=== PATIENT | male | born 1955 | race Caucasian/White ===

== ENCOUNTER → 2016-08-03 | Outpatient (CLI) | payer OTHER ==
[~2016-08-03] MED LIST: ATOR10TA66 PO; CLOP75TA28 PO; GEMF600T3 PO; MULT-1030 PO; OMEG-109 PO
--- NOTE | 2016-08-03 11:19 | STRESS TEST ---
PROCEDURE PHYSICIAN: MEAGHAN MELISSA EXERCISE STRESS ECHOCARDIOGRAM REPORT DATE OF PROCEDURE: 08/03/2016 REFERRING PHYSICIAN: Dr. Farr INDICATION: Chest pain. Baseline heart rate is 67, baseline blood pressure: 136/70. Baseline EKG: Sinus rhythm with no ischemic changes. SUMMARY: The patient started exercising with a baseline heart rate, blood pressure and EKG mentioned above. He was able to exercise for a total 7 minutes on standard Taye protocol. With peak exercise level, blood pressure was 142, which is pressure 90% of maximum expected heart rate. With peak exercise level, EKG was showing minimal nondiagnostic changes. During recovery, heart rate and blood pressure returned to baseline. EKG returned to baseline. Echocardiographic images were acquired and reviewed in the parasternal long axis parasternal short axis, apical 4 chamber and apical 2 chamber views. Review of the images showed normal left ventricular size. Mild hypokinesia noted after stress on the lateral wall. CONCLUSION: 1. Good exercise tolerance a total 7 minutes on standard Taye protocol. Total of 10.1 METs achieving 90% of maximum expected heart rate. 2. Appropriate heart rate and blood pressure response to exercise. Returned to baseline during recovery. 3. Minimal nondiagnostic EKG changes with exercise. Returned to baseline during recovery. 4. Normal echocardiographic images with stress-induced mild lateral wall hypokinesia suggestive of ischemia. Job ID: [id number] Dictated Date: 08/03/2016 10:51:12 Watch Band Assembler Date: 08/03/2016 11:15:13 / parth
--- NOTE | 2016-08-04 07:41 | ECHOCARDIOGRAPHY REPORT ---
PROCEDURE PHYSICIAN: MEAGHAN MELISSA DATE OF PROCEDURE: 08/03/2016 TWO DIMENSIONAL ECHOCARDIOGRAM REPORT PRIMARY PHYSICIAN: OTHER PHYSICIAN: REFERRING PHYSICIAN: Dr. Shanita Farr ORDERING PHYSICIAN: INDICATION FOR THE PROCEDURE: Chest pain. MEASUREMENTS DERIVED VALUES LV DIAMETER (LAX) NORMALS NORMALS Diastolic 4.5 (3.6-5.2) Eject. Fract. 60% (60%+/-6%) Systolic (2.3-3.9) Diastolic Vol. % Shortening (0.22-0.42) Systolic Vol. Aortic Root IVS THICKNESS Diastolic 1.1 (0.6-1.1) LVPW THICKNESS Diastolic 1.1 (0.6-1.1) LA DIAMETER Systolic 3 (2.1-3.7) FINDINGS: 1. Technical quality is good. 2. The left ventricle is normal in size with normal contractility. Systolic function appeared to be normal. Estimated ejection fraction 60%. Diastolic dysfunction is suggested by Doppler. 3. The left atrium is normal in size. No clot or thrombus were seen within the left atrium. 4. The right atrium and right ventricle are normal in size. No clot or thrombus were seen within the right side. 5. Mitral valve is normal in morphology with mild mitral regurgitation noted by color Doppler flow. No mitral valve prolapse. No mitral valve stenosis. 6. Aortic valve is trileaflet with normal opening and closing pattern. No significant aortic stenosis or regurgitation was seen. 7. Tricuspid valve is normal in morphology with mild tricuspid regurgitation noted by color Doppler flow. Doppler across tricuspid valve estimated pulmonary artery pressure of 23+ right atrial pressure. 8. Pulmonic valve is functioning normally. 9. No pericardial effusion. IN CONCLUSION: 1. Normal left ventricular size and systolic function. Estimated ejection fraction 60%. Diastolic dysfunction is suggested by Doppler. 2. Mild mitral and tricuspid regurgitation. 3. Estimated pulmonary artery pressure of 30 mmHg. Job ID: [id number] Dictated Date: 08/03/2016 19:25:12 Server Security Administrator Date: 08/04/2016 07:38:44 / tbk
== END ==
LOC: CARD 08:02
PROVIDERS: ATTEND Internal Medicine Cardiovascular Disease
DX: I10 Essential (primary) hypertension (principal); R07.9 Chest pain, unspecified; E78.1 Pure hyperglyceridemia; N20.0 Calculus of kidney; E66.9 Obesity, unspecified
CPT/HCPCS: 93306

== ENCOUNTER 2016-08-12 10:34 | Day surgery (SDC) | payer OTHER ==
[2016-08-12] VITALS (7 sets, daily range): BP systolic 120–139; BP diastolic 72–106
[~2016-08-12] VITALS: Ht 182.9 cm; Wt 106.6 kg
[2016-08-12] MEDS ORDERED: LIDOCAINE 1% INJ 20 ML (XYLOCAINE) VIAL ONE (10:51)
[2016-08-12] MEDS ORDERED: HEParin (CATH LAB) 2,000 ML IV ONE (10:51)
[2016-08-12] MEDS ORDERED: NS IV 1000 ML 1,000 ML ONE (10:51)
[2016-08-12 11:12] LABS: MEAN PLATELET VOLUME 9.2 FL (7.4-10.4); RED BLOOD COUNT 5.53 10^6/uL (4.35-5.85); RED CELL DISTRIBUTION WIDTH 12.8 % (10.0-14.5); WHITE BLOOD COUNT 7.8 10^3/uL (4.3-11.0)
[2016-08-12 11:13] LABS: BILIRUBIN,URINE NEGATIVE (NEGATIVE); KETONES,URINE NEGATIVE (NEGATIVE); LEUKOCYTE ESTERASE ,URINE NEGATIVE (NEGATIVE); NITRITE,URINE NEGATIVE (NEGATIVE); PH,URINE 5 (5-9); PROTEIN,URINE NEGATIVE (NEGATIVE); UROBILINOGEN,URINE NORMAL (NORMAL)
[2016-08-12] MEDS ORDERED: NS IV 1000 ML 1,000 ML IV SCH (11:15)
--- NOTE | 2016-08-12 11:17 | Diagnostic Imaging Report ---
Indication: Chest pain Portable chest 11:06 AM Heart size and pulmonary vascular normal. Lungs are clear. There are no effusions or pneumothoraces. Impression: Negative chest Dictated by: Dictated on workstation # [id number]
[2016-08-12 11:20] LABS: SQUAMOUS EPITHELIAL CELL,UR RARE /HPF
[2016-08-12 11:22] LABS: INR 1.2 (0.8-1.4); PROTHROMBIN TIME PATIENT 14.4 SEC (12.2-14.7)
[2016-08-12 11:31] LABS: ALANINE AMINOTRANSFERASE 32 U/L (0-55); ALBUMIN 4.9 G/DL (3.2-4.5); ANION GAP 9 MMOL/L (5-14); ASPARTATE AMINO TRANSFERASE 25 U/L (5-34); BILIRUBIN,TOTAL 0.8 MG/DL (0.1-1.0); BLOOD UREA NITROGEN 18 MG/DL (7-18); BUN/CREATININE RATIO 17; CALCIUM 9.8 MG/DL (8.5-10.1); CARBON DIOXIDE 24 MMOL/L (21-32); CHLORIDE 106 MMOL/L (98-107); CHOLESTEROL 201 MG/DL (< 200); CREATININE SERUM 1.05 MG/DL (0.60-1.30); DIRECT LDL 151 MG/DL (1-129); GFR ESTIMATED > 60; GLUCOSE 98 MG/DL (70-105); POTASSIUM 4.2 MMOL/L (3.6-5.0); SODIUM 139 MMOL/L (135-145); TOTAL PROTEIN 7.7 G/DL (6.4-8.2); TRIGLYCERIDES 123 MG/DL (<150); VLDL CHOLESTEROL 25 MG/DL (5-40)
[2016-08-12] MEDS ORDERED: OMEG-109 PO (11:32)
[2016-08-12] MEDS ORDERED: MULT-1030 PO (11:32)
[2016-08-12] MEDS ORDERED: GEMF600T3 PO (11:32)
[2016-08-12] MEDS ORDERED: fentaNYL INJECTION 100 MCG/2 ML AMP ONE (14:48)
[2016-08-12] MEDS ORDERED: MIDAZOLAM 5 MG/5 ML (VERSED) VIAL ONE (14:48)
--- NOTE | 2016-08-12 15:00 | Cardiac Procedure Note-CS/ASA ---
Pre-Procedure Note Pre-Op Procedure Note H&P Reviewed The H&P was reviewed, patient examined and no changes noted. Date H&P Reviewed: Aug 12, 2016 Time H&P Reviewed: 14:59 Conscious Sedation Pre-Proced Time Reviewed: 14:59 ASA Class: 3 Airway Mallampati Classification: ([place] appropriate class) I. II. III, IV Lungs Heart ASA score ASA 1: a normal healthy patient ASA 2: a patient with a mild systemic disease (mid diabetes, controlled hypertension, obesity X ASA 3: a patient with a severe systemic disease that limits activity (angina , COPD, prior Myocardial infarction) ASA 4: a patient with an incapacitating disease that is a constant threat to life (CHF, renal failure) ASA 5: a moribund patient not expected to survive 24 hrs. (ruptured aneurysm) ASA 6: a declared brain patient whose organs are being harvested. For emergent operations, add the letter E after the classification Grade 3 Sedation Plan: Analgesia, Amnesia, Plan communicated to team members, Discussed options with patient/fam, Discussed risks with patient/fam Note The patient is an appropriate candidate to undergo the planned procedure, sedation, and anesthesia. The patient immediately re-assessed prior to indication. MEAGHAN MELISSA MD Aug 12, 2016 15:00
[2016-08-12] MEDS ORDERED: NITROGLYCERIN DRIP 25 MG/D5W 0 ML IV ONE (15:14)
[2016-08-12] MEDS ORDERED: HEParin 1000 UNIT/ML (10ML VIAL) FOR BOLUS ONE (15:14)
[2016-08-12] MEDS ORDERED: EPTIFIBATIDE BOLUS 20 ML IV ONE (15:16)
[2016-08-12] MEDS: NS IV 1000 ML 1,000 ML IV SCH ×2 (15:52→23:15)
[2016-08-12] MEDS ORDERED: CLOPIDOGREL 300 MG (PLAVIX) TABLET PO NR (16:00)
[2016-08-12] MEDS ORDERED: PATIENT MAY USE OWN MEDS, ALL PO SCH (16:00)
[2016-08-12] MEDS: FISH OIL 1200 MG CAPSULE PO SCH (20:29)
[2016-08-12] MEDS: GEMFIBROZIL 600 MG (LOPID) TAB PO SCH (20:30)
[2016-08-12] MEDS ORDERED: NON-FORMULARY MEDICATION 1 EA EA (Omega-3 Fatty Acids/Fish Oil (Fish Oil 1,200 mg Softgel) PO SCH (21:00)
[2016-08-12] MEDS ORDERED: OMEGA 3 (FISH OIL) 1000 MG CAP PO SCH (21:00)
[2016-08-12] MEDS ORDERED: GEMFIBROZIL 600 MG (LOPID) TAB PO SCH (21:00)
[2016-08-12] MEDS ORDERED: ATORVASTATIN 10 MG (LIPITOR) TABLET PO SCH (21:00)
[2016-08-13 04:00] VITALS: BP 133/81
[2016-08-13 04:24] LABS: MEAN PLATELET VOLUME 9.7 FL (7.4-10.4); RED BLOOD COUNT 5.15 10^6/uL (4.35-5.85); RED CELL DISTRIBUTION WIDTH 12.7 % (10.0-14.5); WHITE BLOOD COUNT 8.6 10^3/uL (4.3-11.0)
[2016-08-13 04:37] LABS: ANION GAP 11 MMOL/L (5-14); BLOOD UREA NITROGEN 17 MG/DL (7-18); BUN/CREATININE RATIO 20; CALCIUM 8.8 MG/DL (8.5-10.1); CARBON DIOXIDE 19 MMOL/L (21-32); CHLORIDE 107 MMOL/L (98-107); CREATININE SERUM 0.86 MG/DL (0.60-1.30); GFR ESTIMATED > 60; GLUCOSE 103 MG/DL (70-105); POTASSIUM 4.3 MMOL/L (3.6-5.0); SODIUM 137 MMOL/L (135-145)
[2016-08-13] MEDS: GEMFIBROZIL 600 MG (LOPID) TAB PO SCH (06:13)
[2016-08-13] MEDS: FISH OIL 1200 MG CAPSULE PO SCH (06:14)
[2016-08-13] MEDS ORDERED: MULTIVIT W/MINERALS TAB (THERAGRAN M) PO SCH ×2 (07:00)
[2016-08-13] MEDS ORDERED: CLOP75TA28 PO (07:50)
[2016-08-13] MEDS ORDERED: ATOR10TA66 PO (07:50)
--- NOTE | 2016-08-13 07:55 | Discharge Inst-Post CATH ---
Discharge Inst-CATH Post Cardiac Cath D/C Inst Follow Up/Plan Appointment with Dr Bear's office in 2-4 weeks CARDIAC CATH DISCHARGE INSTRUCTIONS *Hold Metformin for 48 hours post heart cath. ACTIVITY * Go Home directly and rest. * Limit activity of the leg (or wrist if it was used) for 7 days including aerobics, swimming, jogging, bicycling, etc. * Restrict stair-climbing for 7 days if possible, if not, climb up with your non -cath leg, then bring together on the same step. * Avoid lifting, pushing, pulling or excessive movement of the affected extremity for 7 days. * Customary sexual activity may be resumed after 2 days-use caution not to use a position that strains or causes pain to the affected extremity. * No driving for 24 hours. * NO SMOKING. * Avoid straining for bowel movements for 7 days. * Gentle walking on level ground is allowed. * Returning to work will depend on the type of procedure and the results. Your doctor will discuss this with you. CALL YOUR DOCTOR FOR ANY OF THE FOLLOWING: *If bleeding from the puncture site occurs- Apply gentle pressure to site with clean cloth and call your doctor or EMS. * If a knot or lump forms under the skin, increases in size, or causes pain. * If bruising appears to be worsening or moving further down your leg instead of disappearing. * Temperature above 101 F. CARE OF YOUR GROIN INCISION; * Bruising or purple discoloration of the skin near the puncture site is common. * You may shower only, no bathtub bathing for 5 days. Be careful to avoid slipping as your leg may feel stiff. * If a closure device was used on your femoral artery, please see the attached guide regarding care of the device and your leg. * REMOVE the dressing from your groin the next day after your procedure in the shower. CARE OF YOUR WRIST INCISION; * Bruising or purple discoloration of the skin near the puncture site is common. * You may shower. * DO NOT submerge wrist. * Remove dressing in 24 hours. MEAGHAN BEAR MD Aug 13, 2016 07:55
--- NOTE | 2016-08-13 08:01 | Cardiology Progress Note ---
Subjective Subjective/Events-last exam Patient is in bed, feeling better, no new complaint, no chest pain or shortness of breath, no palpitations Review of Systems General: No Chills, No Night Sweats, No Fatigue, No Malaise, No Appetite, No Other HEENT: No Head Aches, No Visual Changes, No Eye Pain, No Ear Pain, No Dysphasia , No Sinus Congestion, No Post Nasal Drip, No Sore Throat, No Other Pulmonary: No Dyspnea, No Cough, No Pleuritic Chest Pain, No Other Cardiovascular: No: Chest Pain, Edema, Lt Headedness, Orthopnea, Other, Palpitations, Paroxysmal Noc. Dyspnea Objective-Cardiology Exam Last Set of Vital Signs Vital Signs 08/13/16 04:00 Temp 97.5 Pulse 62 Resp 18 B/P 133/81 Pulse Ox 98 O2 Delivery Room Air Capillary Refill : Less Than 3 Seconds I&O Intake and Output 08/13/16 00:00 Intake Total 150 ml Output Total 0 ml Balance 150 ml Intake Oral 150 ml Output Urine Total 0 ml General: Alert, Oriented X3, Cooperative HEENT: Atraumatic, PERRLA Neck: Supple, No JVD, No Thyromegaly Lungs: Clear to Auscultation, Normal Air Movement Heart: Regular Rate, Normal S1, Normal S2, No Murmurs Abdomen: Normal Bowel Sounds, Soft, No Tenderness, No Hepatosplenomegaly, No Masses Extremities: No Clubbing, No Cyanosis, No Edema, Normal Pulses, No Tenderness/ Swelling Skin: No Rashes, No Breakdown, No Significant Lesion Neuro: Normal Gait, Normal Speech, Strength at 5/5 X4 Ext, Normal Tone, Sensation Intact Psych/Mental Status: Mental Status NL, Mood NL Results Lab Laboratory Tests 08/12/16 11:06 08/13/16 03:24 A/P-Cardiology Admission Diagnosis Chest pain Coronary artery disease Hypertension Hyperlipidemia Assessment/Plan Chest pain, better Coronary artery disease Hypertension Hyperlipidemia Planning for high risk intervention, continue to [facility] MEAGHAN MELISSA MD Aug 13, 2016 08:01
[2016-08-13 08:02] VITALS: BP 124/82
[2016-08-13 08:50] VITALS: BP 124/82
[2016-08-13] MEDS ORDERED: CLOPIDOGREL 75 MG (PLAVIX) TABLET PO SCH ×2 (09:00)
[2016-08-13] MEDS ORDERED: ISOSORBIDE MONONITRATE 30 MG (IMDUR) TAB PO SCH (09:00)
--- NOTE | 2016-08-13 13:37 | DISCHARGE SUMMARY ---
PROCEDURE PHYSICIAN: MEAGHAN MELISSA DATE OF PROCEDURE: 08/12/2016 REFERRING PHYSICIAN: Dr. Shanita Farr BRIEF HISTORY: Mr. Whitney is a 61-year-old gentleman with history of hypertension, hyperlipidemia. He has been having chest pain. He had an abnormal stress test with lateral wall ischemia. PROCEDURE NOTE: After explaining the procedure to the patient, all pros and cons were explained. All questions were answered. The patient signed a consent, then he was placed on the cardiac catheterization laboratory. The right groin was prepped in a sterile fashion. Local anesthesia applied to right groin. 6-Yakut sheath was placed in the right femoral artery. Combination of right and left Anthony catheter were used to access the right and left coronary system. Multiple views were obtained. Pigtail catheter advanced to the left ventricular cavity. Left ventriculogram was done. Pullback LV to aorta was done. The aortic arch angiogram was done. Then the patient was noted to have total occlusion of the circumflex artery. I decided to proceed with percutaneous intervention. The patient was given heparin and Integrilin boluses. I used FL guide advanced to the left coronary system. Tried to cross the lesion with BMW wire without success. I parked the BMW wire in the obtuse marginal branch. Then I used Whisper extra support wire without success. Exchanged it into ChoICE floppy without success. I advanced 2.0 x 8 mm Emerge balloon to the proximal circumflex artery and inflated it for additional support and tried to cross the total occlusion without success. At that point the wires were removed and the balloon was removed. I decided to proceed with conservative management. Sheath was removed. Mynx device deployed. Hemostasis achieved. FINDINGS: HEMODYNAMICS: LV pressure 122/17, end-diastolic pressure of 17, aortic pressure 117/64, mean of 86 no significant gradient across the aortic valve. ANATOMY: 1. Left main coronary artery is bifurcating to left anterior descending and left circumflex artery with no obstructive disease. 2. Left anterior descending artery bifurcates proximally into 2 diagonal arteries with abrupt bifurcation. There is no obstructive disease with mild to moderate disease. 3. Left circumflex artery is totally occluded at the proximal portion. Attempt for crossing the total occlusion has failed as described above. 4. Right coronary artery is a large dominant artery with 40 to 50% stenosis proximally, during collateral filling the circumflex system. 5. Left ventriculogram was done in the right anterior oblique position. Left ventricle is normal in size. Systolic function appeared to be normal. Estimated ejection fraction 60%. 6. The aortic arch angiogram: Aortic arch angiogram was done in the left anterior oblique position. There is mild hypertensive changes. Origin of the great neck vessels were normal. CONCLUSION: 1. Total occlusion of the circumflex artery with attempt to cross the lesion without success, getting collateral from the right system. Consideration for high-risk intervention for GOLF STUD RIVETER at a tertiary care center if patient continues to be symptomatic. 2. Large dominant right coronary system with 50% stenosis. 3. Mild disease at the LAD. 4. Normal left ventricular size and systolic function. Estimated ejection fraction 60%. 5. Normal aortic arch and great neck vessels. DISCUSSION AND RECOMMENDATION: The patient will be treated medically at this time. I will continue with Gemfibrozil, add statins so this medication. Add Plavix. The patient is allergic to aspirin. Add Isosorbide and evaluate his tolerance. 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 FINAL DIAGNOSES: 1. Unstable angina. 2. Coronary artery disease. 3. Hypertension. 4. Hyperlipidemia Job ID: [id number] Dictated Date: 08/12/2016 15:56:54 Winding Lathe Operator Date: 08/13/2016 13:34:47/parth
== END 2016-08-13 08:50 | disposition home or self-care (01) ==
LOC: CATH 10:34 → ICU 17:07 → CATH 08-13 08:50
PROVIDERS: ATTEND Internal Medicine Cardiovascular Disease
DX: I25.110 Atherosclerotic heart disease of native coronary artery with unstable angina pectoris (principal); I25.82 Chronic total occlusion of coronary artery; I10 Essential (primary) hypertension; E78.1 Pure hyperglyceridemia; E66.9 Obesity, unspecified; Z68.31 Body mass index [BMI] 31.0-31.9, adult; Z87.891 Personal history of nicotine dependence; Z79.899 Other long term (current) drug therapy
CPT/HCPCS: 36221; 36415; 71010; 80048; 80053; 80061; 81000; 85027; 85347; 85610; 85730; 87081; 93005; 93458

== ENCOUNTER 2016-12-16 09:06 | Outpatient (RCR) | payer OTHER ==
--- OUTSIDE RECORDS SUMMARY | 2016-09-28 08:38 | XMS REPORT | Continuity of Care Document ---
Author Author [facility] Organization [facility] Address Unknown Phone Unavailable Care Team Providers Care Senior Materials Scientist Name Role Phone Leatha Farr PCP [phone] Source Comments Some departments are not documenting in the electronic medical record. If you do not see the information that you expected, contact Release of Information in the Health Information Management department at [phone] for further assistance in locating additional records.[facility] Active Allergies and Adverse Reactions Allergen Noted Date Severity Reactions Comments Aspirin 08/19/2016 Medium HIVES Pt states he breaks out in hives "head to toe". Aspirin last taken 30 years ago, per pt. Ibuprofen 08/19/2016 Low UNKNOWN Current Medications Prescription Sig. Disp. Refills Start End Date Status Date atorvastatin (LIPITOR) 10 Take 10 mg by mouth Active mg tablet daily. clopiDOGrel (PLAVIX) 75 Take 75 mg by mouth Active mg tablet daily. gemfibrozil (LOPID) 600 Take 600 mg by mouth Active mg tablet twice daily. MULTIVITAMIN PO Take 1 Tab by mouth Active daily. DOCOSAHEXANOIC ACID/EPA Take 1,200 mg by mouth Active (FISH OIL PO) twice daily. aspirin 81 mg chewable Chew 1 Tab by mouth 90 Tab 3 08/26/19 Active tablet daily. Take with food. 17 Active Problems Problem Noted Date Coronary artery disease involving [place] coronary artery of [place] heart Hyperlipidemia 08/19/2016 Coronary artery disease involving [place] heart 08/19/2016 Overview: 08/12/16 heart cath ([place], [place]) : [employer] of the circumflex artery with attempt to cross the lesion without success. Large dominant RCA with 50% stenosis. Mild disease at the LAD. Normal EF, 60%. Normal aortic arch & great neck vessels. 08/25/16 - PCI of [employer]IAN of circumflex with Xience drug eluting stent. Most Recent Encounters Date Type Specialty Providers Description 08/25/2016 Hospital Cardiology Robin Thomas MD Coronary artery disease - Encounter involving [place] heart 08/26/2016 08/25/2016 Office Visit Cardiology Robin Thomas MD New Patient - [employer]IAN-circumflex; same day cath 08/25/2016 Surgery Cardiology Robin Thomas MD Chronic Total Occlusion Circumflex 08/24/2016 Pre-Admit Cardiology Natasha Haas APRN-C Orders Only 08/20/2016 Documentation Cardiology Justice Arteaga RN Precertification - Approval for LVCORS through [facility] 08/19/2016 Pre-Procedure Cardiology Janet Glass RN Cath Pre- Procedure Instructions Instructions - LVCORS +/- ([employer]IAN - circumflex w/ ASA desensitization) 08/19/2016 Patient Profile Cardiology Janet Glass RN Erroneous encounter-disregard 08/19/2016 Patient Profile Cardiology Janet Glass RN New Patient - CAD - [employer]IAN of the circumflex, referred by Nikunj Bear MD Social History Tobacco Use Types Packs/Day Years Used Date Never Assessed Last Filed Vital Signs Vital Sign Reading Time Taken Blood Pressure 124/74 08/26/2016 7:50 AM BILINGUAL CASE MANAGER Pulse 63 08/26/2016 7:50 AM BILINGUAL CASE MANAGER Temperature 36.4 C (97.5 F) 08/26/2016 7:50 AM BILINGUAL CASE MANAGER Respiratory Rate - - Height 1.829 m (6') 08/25/2016 8:37 AM BILINGUAL CASE MANAGER Weight 108.7 kg (239 lb 10.2 oz) 08/25/2016 8:37 AM BILINGUAL CASE MANAGER Body Mass Index 32.49 08/25/2016 8:37 AM BILINGUAL CASE MANAGER Oxygen Saturation 97% 08/26/2016 7:50 AM BILINGUAL CASE MANAGER Plan of Care Health Maintenance Due Date Last Done Comments Hepatitis C Screening 1955 Physical (Comprehensive) 1960 Exam Pertussis Vaccine 1964 Tetanus Vaccine 1970 Colorectal Cancer 2003 Screening Shingles Vaccine 2013 Influenza Vaccine 03/12/2016 Procedures from Last 3 Months Procedure Name Priority Date/Time Associated Diagnosis Comments ECG UNCONFIRMED-SCAN 08/27/2016 Results for this 11:40 AM BILINGUAL CASE MANAGER procedure are in the results section. ECG-SCAN 08/27/2016 Results for this 11:36 AM BILINGUAL CASE MANAGER procedure are in the results section. TELEMETRY STRIPS-SCAN 08/27/2016 Results for this 11:32 AM BILINGUAL CASE MANAGER procedure are in the results section. PROCEDURE RECORD-SCAN 08/27/2016 Results for this 11:21 AM BILINGUAL CASE MANAGER procedure are in the results section. ECG-SCAN 08/27/2016 Results for this 9:50 AM BILINGUAL CASE MANAGER procedure are in the results section. ECG-SCAN 08/27/2016 Results for this 9:50 AM BILINGUAL CASE MANAGER procedure are in the results section. Results from Last 3 Months ECG UNCONFIRMED-SCAN (08/27/2016 11:40 AM) Narrative Ordered by an unspecified provider. ECG-SCAN (08/27/2016 11:36 AM) Narrative Ordered by an unspecified provider. TELEMETRY STRIPS-SCAN (08/27/2016 11:32 AM) Narrative Ordered by an unspecified provider. PROCEDURE RECORD-SCAN (08/27/2016 11:21 AM) Narrative Ordered by an unspecified provider. ECG-SCAN (08/27/2016 9:50 AM) Narrative Ordered by an unspecified provider. ECG-SCAN (08/27/2016 9:50 AM) Narrative Ordered by an unspecified provider. CARDIAC CATH REPORT (08/26/2016 6:44 AM) Procedure Note WedAug 25, 2016 6:18 PM BILINGUAL CASE MANAGER [facility] CARDIAC CATHETERIZATION REPORT Page 2 ARMANI Reyes : 1955 #: [id number] KU MR #/Billing ID #: [id number] / [id number] DATE: 08/25/2016 MAIL CLERK: Robin Thomas MD DICTATING PROVIDER: Vito Crocker MD REFERRING PHYSICIAN: Shanita Farr MD TIME: 5:41 p.m. FELLOW: Vito Crocker MD PROCEDURES PERFORMED: 1. Left heart catheterization. 2. Selective angiography. 3. Successful percutaneous coronary intervention of the mid left circumflex [employer]IAN with a 2.25 x 18 Xience stent and post dilated post dilated with a 2.25 x 8 NC balloon with good angiographic results and residual stenosis of 0%. INDICATION FOR PROCEDURE: Mr. Armani Whitney is referred by Dr. Bear for revascularization of a high risk proximal circumflex lesion. The patient did have cardiac catheterization for chest pressure and symptoms. At that time, he was found to have an occlusion, [employer]IAN of the left circumflex mid portion. Attempt was made to open it up, but they were unsuccessful. As a result of which, he is referred here for further attempt at the [employer]IAN of the mid left circumflex. WRITTEN INFORMED CONSENT: Mr. Whitney was consented in the holding area after a thorough explanation of the risks and benefits of the procedure including alternatives of the procedure. Patient agreed to proceed and gave the written informed consent. DETAILS OF PROCEDURE: Mr. Armani Whitney was brought to the cardiac catheterization laboratory in a fasting and hemodynamically nonsedated, stable state. The patient received a total of 50 mcg IV fentanyl and 3 mg IV Versed to maintain and achieved moderate sedation during the entire procedure. Hemodynamic, neurologic, and respiratory parameters including heart rate, blood pressure, EKG, and level of consciousness, respiratory rate, and pulse oximetry were monitored by myself Dr. Robin Thomas, and by the experimental machining lab manager staff. After sterile prep and drape, 20 mL of 1% lidocaine was injected in the right groin subcutaneously and a 5-Iraqi sheath was inserted into the right femoral artery using Seldinger technique and micropuncture kit. Once the sheath was in place, a 5-Iraqi JL4 was advanced over the guidewire into the aortic root and engaged to the left coronary ostia. Left coronary artery images were done in multiple views. JL4 removed. Then, a 5-Iraqi JR4 was advanced over the guidewire into the aortic root and engaged to the right coronary ostia. Right coronary artery images were done in multiple views. Then, a 5-Iraqi pigtail catheter was advanced over the guidewire into the aortic root and further advanced into the LV and LV pressure measurements done. Pigtail catheter was pulled back from LV into the aorta and LV AO pullback gradient recorded. This leal the end of the diagnostic angiography and left heart catheterization. After this, we decided that we would pursue the [employer]IAN of the mid left circumflex. DETAILS OF THE PERCUTANEOUS CORONARY INTERVENTION OF THE [employer]ARIAN OF THE MID LEFT CIRCUMFLEX: A 6-Iraqi sheath was inserted into the right femoral artery using the Seldinger technique and over the guidewire and 5-Iraqi sheath was removed. Once the 6-Iraqi sheath was in place, heparin was given IV bolus on an as- needed basis and ACT was checked intermittently and was kept between 250 and 350 during the entire PCI procedure. A 6-Iraqi AL 0.75 guide was initially tried to engage to the left coronary ostia, but did not help. Then, we tried a 6-Iraqi AL1, then we tied a 6-Iraqi EBU 3.75 and a 4.0 guidewire, but they did not help. At this point in time we used an SL 4.0, which gave us medium support and engaged the left coronary ostia. After this, we advanced a 0.014 long Fielder XT wire along with a Corsair 135 cm long catheter. The 0.014 Fielder XT went through the mid left circumflex 100% [employer]IAN occlusion all the way down into the distal left circumflex. Over these, we were able to advance our Corsair catheter all the way down into the distal left circumflex. Once it was in the distal left circumflex, we took out the 0.014 Fielder XT wire, and then we introduced 0.014 long Luge wire through the Corsair catheter. At this point in time, removed the Corsair catheter, leaving the long Luge wire in the distal left circumflex. The Corsair catheter was removed and then we advanced a 2.0 x 15 Monorail balloon over the long Luge wire, all the way into the mid left circumflex. We did a couple of serial balloon inflations. After this, images were taken which showed that the artery had opened up with a good result. At this point in time, we decided we would use a 2.25 x 18 Xience stent. This was delivered at the mid left circumflex stenosis from the proximal left circumflex at 12 atmospheres for 12 seconds and then post dilated with a 2.25 x 8 NC balloon in the prox in the midportion of the stent with good angiographic results and residual stenosis of 0%. After this, final images were taken. Guidewire was pulled out and guide disengaged and taken out of the guidewire. This leal the end of the case. HEMOSTASIS: Achieved at the right femoral arterial access site using the manual sheath pullout ACT protocol in the holding area. The sheath was sutured in place in the experimental machining lab manager. FINDINGS OF THE PROCEDURE: HEMODYNAMICS: 1. Aortic systolic pressure of 118 with a diastolic of 70 with a mean of 91 mmHg. 2. Left ventricular systolic pressure of 125 with a left ventricular end- diastolic pressure of 10 mmHg. CORONARY ANATOMY FINDINGS: 1. Left main: The left main is a large vessel arising from the left coronary cusp. It bifurcates into LAD and left circumflex. It has no significant stenosis. 2. LAD: The LAD is a type 1 vessel. It does not reach the apex. It gives rise to a high diagonal 1, which supplies the ramus distribution which further gives rise to 2 medium-sized branches. This covers a lot of territory, almost reaching the apex. It has no significant stenosis. Diagonal 1 has no significant stenosis. 3. Left circumflex: The left circumflex is a medium-size vessel, which gives rise to an OM1 which was jailed by today's stent. This OM1 is a small branch. In the mid left circumflex it gives rise to one OM2 branch, which is a medium- size branch which has no significant stenosis. Distally, the left circumflex gives rise to an OM3, which is a medium-sized branch with no significant stenosis. 4. RCA: The RCA is a large, dominant vessel arising from the right coronary cusp. It has diffuse plaquing in the prox in the midportion. There is 10% to 20% stenosis in the midportion with a plaque edge seen. The distal RCA further gives rise to PDA and PLV systems which are medium-sized branches with no significant stenosis. There are collaterals seen from PLV to the distal OM, which was initially [employer]RARIAN'd and now opened up with today's procedure. BLOOD LOSS: 20 mL. SPECIMENS REMOVED: None. COMPLICATIONS: None. CONTRAST TYPE: Isovue-370, amount 252 mL. FLUORO TIME: 22.6 minutes. AIR KERMA: 2532 mGy. MEDICATIONS USED: 1. 1% lidocaine 20 mL subcutaneously. 2. Fentanyl 50 mcg IV. 3. Heparin 12,000 units IV. 4. Nitroglycerin 200 mcg intracoronary. 5. Versed 3 mg IV. CONCLUSIONS AND RECOMMENDATIONS: 1. Successful percutaneous coronary intervention of the [employer]ARIAN of the mid left circumflex with a 2.25 x 18 Xience stent and post dilated with a 2.25 x 8 noncompliant balloon with good angiographic results and residual stenosis of 0% . 2. Dual antiplatelet therapy at least for 6 months with aspirin lifelong, 81 mg. 3. Risk factors and lifestyle modification, cardiac rehab, and follow up with Dr. Bear. Dr. Rboin Thomas was present throughout the procedure for monitoring and supervision, performing important parts of the procedure himself when necessary. The total duration of the procedure was 70 minutes. Robin Thomas MD JP/Flavio /[id number] cc: - Shanita Farr MD BASIC METABOLIC PANEL (08/26/2016 3:15 AM)Only the most recent of 2 results within the time period is included. Component Value Range Sodium 132 (L) 137-147 MMOL/L Potassium 4.5Comment: MODERATE HEMOLYSIS 3.5-5.1 MMOL/L Chloride 103 98-110 MMOL/L CO2 24 21-30 MMOL/L Anion Gap 5 3-12 Glucose 96 70-100 MG/DL Blood Urea Nitrogen 18 7-25 MG/DL Creatinine 0.87 0.4-1.24 MG/DL Calcium 9.5 8.5-10.6 MG/DL eGFR Non >60Comment: >60 mL/min The eGFR is not validated for use in drug dosing adjustments. Continue to use estimated creatinine clearance per dosing reference text. Please contact the Clinical Pharmacist for questions. eGFR >60Comment: >60 mL/min The eGFR is not validated for use in drug dosing adjustments. Continue to use estimated creatinine clearance per dosing reference text. Please contact the Clinical Pharmacist for questions. Specimen Blood CBC (08/26/2016 3:15 AM)Only the most recent of 2 results within the time period is included. Component Value Range White Blood Cells 7.0 4.5-11.0 K/UL RBC 5.06 4.4-5.5 M/UL Hemoglobin 14.7 13.5-16.5 GM/DL Hematocrit 45.4 40-50 % MCV 89.8 80-100 FL MCH 29.1 26-34 PG MCHC 32.4 32.0-36.0 G/DL RDW 13.0 11-15 % Platelet Count 223 150-400 K/UL MPV 7.4 7-11 FL Specimen Blood POC ACTIVATED CLOTTING TIME (08/25/2016 8:09 PM)Only the most recent of 6 results within the time period is included. Component Value Range Activated Clotting Time 172 s
== END 2016-12-27 | disposition home or self-care (01) ==
LOC: CR 09:06
PROVIDERS: ATTEND Internal Medicine Cardiovascular Disease
DX: Z48.812 Encounter for surgical aftercare following surgery on the circulatory system (principal); Z95.5 Presence of coronary angioplasty implant and graft
CPT/HCPCS: 93798

== ENCOUNTER 2017-01-01 08:38 | Outpatient (RCR) | payer OTHER | END 2017-01-01 09:00 | disposition home or self-care (01) | LOC: CR 08:38 | PROVIDERS: ATTEND Internal Medicine Cardiovascular Disease | DX: Z48.812 Encounter for surgical aftercare following surgery on the circulatory system (principal); Z95.5 Presence of coronary angioplasty implant and graft | CPT/HCPCS: 93798 ==

== ENCOUNTER → 2017-12-29 | Outpatient (CLI) | payer OTHER ==
[~2017-12-29] MED LIST changes: +CATHETER FLUSH 10 ML SYR IV PRN
[2017-12-29 09:12] VITALS: BP 145/70
[2017-12-29 09:21] VITALS: BP 220/81
--- NOTE | 2017-12-30 04:49 | STRESS TEST ---
DATE OF SERVICE: EXERCISE MYOVIEW STRESS TEST REPORT REFERRING PHYSICIAN: Sindi Mack DO and [facility] Baseline heart rate is 57. Baseline blood pressure 135/75. Baseline EKG is sinus rhythm with no ischemic changes. In summary, the patient was injected with 10.73 mCi of technetium-99 Myoview and the resting images were obtained. Then, the patient started exercising with a baseline heart rate, blood pressure and EKG mentioned above. At peak stress level, the patient was given 31.2 mCi of technetium-99 Myoview. He was able to exercise for 8 minutes 30 seconds on standard Taye protocol, achieving maximum heart rate of 135, which is 86% of maximum expected heart rate. With peak exercise level, EKG was showing no ischemic changes. Blood pressure was 208/77. During recovery, heart rate and blood pressure returned to baseline. EKG returned to baseline. The resting and stress images were reviewed and compared in the short axis, horizontal long axis, and vertical long axis views. Review of the images showed diaphragmatic attenuation with typical male pattern. No significant ischemia or infarction. SSS is 2, SDS 1, TID value 0.9. On the gated images, the left ventricle appeared to be in normal size with normal contractility. Calculated ejection fraction 61%. CONCLUSION: 1. Excellent exercise tolerance, a total of 8 minutes 30 seconds on standard Taye protocol, achieving 86% of maximum expected heart rate. 2. Negative exercise stress test for ischemia or arrhythmia by EKG. 3. Hypertensive response to exercise; returned to baseline during recovery. 4. Typical male pattern with no ischemia on SPECT images. 5. Normal left ventricular size with normal contractility. Calculated ejection fraction is 61%. Job ID: [id number] DocumentID: [id number] Dictated Date: 12/29/2017 17:39:25 [employer] Supervisor Date: 12/29/2017 23:41:57 Dictated By: MEAGHAN MELISSA MD
== END ==
LOC: CARD 07:20
PROVIDERS: ATTEND Internal Medicine Cardiovascular Disease
DX: I25.10 Atherosclerotic heart disease of native coronary artery without angina pectoris (principal); R07.89 Other chest pain; I10 Essential (primary) hypertension; E87.1 Hypo-osmolality and hyponatremia; N20.0 Calculus of kidney; E66.9 Obesity, unspecified
CPT/HCPCS: 78452; 93017

== ENCOUNTER → 2019-12-06 | Outpatient (CLI) | payer MEDICARE ==
[~2019-12-06] VITALS: Ht 182 cm; Wt 115.0 kg
[~2019-12-06] MED LIST changes: -GEMF600T3 PO; +GEMF600T8 PO
[2019-12-06 13:04] VITALS: BP 128/84
[2019-12-06 13:15] VITALS: BP 137/94
--- NOTE | 2019-12-06 18:52 | STRESS TEST ---
DATE OF SERVICE: EXERCISE MYOVIEW STRESS TEST REPORT REFERRING PHYSICIAN: Sindi Mack DO Baseline heart rate is 61, baseline blood pressure 131/84. Baseline EKG is sinus rhythm. In summary, the patient was injected with 10.48 mCi of technetium-99 Myoview and the resting images were obtained. Then, the patient was able to exercise for a total of 6 minutes 30 seconds on standard Taye protocol. With peak exercise level, EKG was showing minimal nondiagnostic changes. Blood pressure was 181/101. During recovery, heart rate and blood pressure returned to baseline. EKG returned to baseline. The resting and stress images were reviewed and compared in the short axis, horizontal long axis, and vertical long axis views. Review of the images showed good radiotracer uptake with no significant ischemia or infarction. SSS is 1, SDS 1. TID value 1.09. On the gated images, the left ventricle appeared to be normal size with normal contractility. Calculated ejection fraction 60%. CONCLUSION: 1. Fair exercise tolerance for a total of 6 minutes 30 seconds on standard Taye protocol, total of 7.9 METS achieving 86% of maximum expected heart rate. 2. Appropriate heart rate and blood pressure response to exercise returned to baseline during recovery. 3. Nondiagnostic EKG changes with exercise returned to baseline during recovery. 4. No ischemia or infarction on SPECT images. 5. Normal left ventricular size with normal contractility. Calculated ejection fraction 60%. Job ID: [id number] DocumentID: [id number] Dictated Date: 12/06/2019 14:37:24 Receiving Clerk Date: 12/06/2019 18:51:22 Dictated By: MEAGHAN MELISSA MD
== END ==
LOC: CARD 11:06
PROVIDERS: ATTEND Internal Medicine Cardiovascular Disease
DX: I25.10 Atherosclerotic heart disease of native coronary artery without angina pectoris (principal); E78.1 Pure hyperglyceridemia; I10 Essential (primary) hypertension
CPT/HCPCS: 78452; 93017

== ENCOUNTER → 2023-03-24 | Outpatient (CLI) | payer MEDICARE ==
[~2023-03-24] VITALS: Ht 182 cm; Wt 104.0 kg
[~2023-03-24] MED LIST changes: -CATHETER FLUSH 10 ML SYR IV PRN; +CATHETER FLUSH 10 ML SYR IVP PRN; -GEMF600T8 PO; +GEMF600T88 PO
[2023-03-24 12:58] VITALS: BP 142/73
--- NOTE | 2023-03-24 15:02 | Cardiology Stress Test Report ---
Stress Test Report Date of Procedure/Referring: Date of Procedure: Mar 24, 2023 PCP Sindi Mack DO Admitting Physician Admitting Physician: Attending Physician: Nikunj Bear MD Indications: CAD Baseline Heart Rate: 61 Baseline Blood Pressure: Blood Pressure Systolic: 142 Blood Pressure Diastolic: 73 Vital Signs Date Time Temp Pulse Resp B/P (MAP) Pulse Ox O2 Delivery O2 Flow Rate FiO2 03/24/23 12:58 83 16 142/73 (96) 97 Room Air Baseline Vital Signs Vital Signs Date Time Temp Pulse Resp B/P (MAP) Pulse Ox O2 Delivery O2 Flow Rate FiO2 03/24/23 12:58 83 16 142/73 (96) 97 Room Air Baseline EKG: Baseline EKG: NSR Summary: After explaining the procedure and details to the patient, he signed the consent and was brought to the stress nuclear laboratory. Patient exercised on standard Taye protocol, EKG, heart rate and blood pressure were monitored continuously, resting and stress doses of radio tracer were injected, imaging was acquired and reviewed in the short axis, horizontal long axis and vertical long axis views Patient was able to exercise for a total of 7 minutes on Taye protocol, METs 7.1 Maximum heart rate 141 Maximum blood pressure 239/91 Stress EKG, Minimal nondiagnostic changes Recovery EKG, Return to baseline TID: 1.11 SSS: 0 SDS: 0 EF: 69 Conclusion: Good exercise tolerance for a total of 7 minutes on standard Taye protocol, 7.1 METS achieving 93% of maximal expected heart rate Appropriate heart rate response to exercise with hypertensive response to exercise with peak blood pressure 239/91 return to baseline during recovery Minimal nondiagnostic EKG changes with exercise return to baseline during recovery No significant ischemia or infarction noted on SPECT images Normal left ventricular size, ejection fraction 69% Copy Copies To 1: SINDI MACK BASHAR J MD Mar 24, 2023 15:02
== END ==
LOC: CARD 10:28
PROVIDERS: ATTEND Internal Medicine Cardiovascular Disease
DX: I25.10 Atherosclerotic heart disease of native coronary artery without angina pectoris (principal); I10 Essential (primary) hypertension
CPT/HCPCS: 78452; 93017; A9502